=== PATIENT | male | born 1945 | race Caucasian/White ===

== ENCOUNTER 2016-06-15 13:43 | Outpatient (CLI) | payer MEDICARE ==
--- NOTE | 2016-06-15 17:39 | Diagnostic Imaging Report ---
[facility] [id number] [facility].[address] [id number] Report Submission Date: Jun 15, 2016 2:18:06 PM CDT Patient Study Name: JACK MORELOS Date: Jun 15, 2016 2:04:44 PM CDT Modality Type: CR Gender: M Description: CHEST : 49 Institution: [facility] Physician: EMELYN RASHEEDA - OP Chest two views HISTORY: Right-sided chest pain FINDINGS: The lungs are clear. No pleural effusions are observed. Heart size and pulmonary vascularity are normal. Osseous structures are unremarkable. IMPRESSION: Normal chest. Electronically signed on Jun 15, 2016 2:18:06 PM CDT by: Rajeev NEUMANN
== END 2016-06-15 13:44 ==
LOC: RT 13:43
PROVIDERS: ATTEND Family Medicine
DX: R07.2 Precordial pain (principal); I35.0 Nonrheumatic aortic (valve) stenosis
CPT/HCPCS: 36415; 71020; 84484